=== PATIENT | female | born 1995 | race Caucasian/White ===

== ENCOUNTER 2023-06-16 18:12 | Emergency (ER) | payer MEDICAID | END 2023-06-17 | disposition left against medical advice (07) | LOC: ER 06-17 03:58 | DX: M25.579 Pain in unspecified ankle and joints of unspecified foot (principal); Z53.21 Procedure and treatment not carried out due to patient leaving prior to being seen by health care provider ==

== ENCOUNTER 2023-10-01 11:05 | Outpatient (CLI) | payer MEDICAID | END 2023-10-01 23:59 | disposition home or self-care (01) | LOC: RAD 11:05 | PROVIDERS: ATTEND Family Medicine | DX: Z32.01 Encounter for pregnancy test, result positive (principal) | CPT/HCPCS: 76801; 76817; 93976 ==

== ENCOUNTER → 2023-11-09 | Outpatient (CLI) | payer MEDICAID | END | disposition home or self-care (01) | LOC: RAD 07:42 | PROVIDERS: ATTEND Family Medicine | DX: O09.891 Supervision of other high risk pregnancies, first trimester (principal); Z3A.10 10 weeks gestation of pregnancy | CPT/HCPCS: 76801 ==